=== PATIENT | female | born 1995 | race Caucasian/White ===

== ENCOUNTER → 2021-08-16 20:28 | Observation (INO) | END | disposition home or self-care (01) | LOC: 1NENULAB | PROVIDERS: ADMIT Advanced Practice Midwife; ATTEND Advanced Practice Midwife ==

== ENCOUNTER 2021-09-17 16:11 | Inpatient (IN) ==
[2021-09-17 15:04] LABS: Basophils % 0.3 %; Eosinophils # 0.1 K/mcL (0.0-0.6); Eosinophils % 0.5 %; Hematocrit 41.3 % (35.3-44.9); Hemoglobin 13.9 g/dL (11.5-15.4); Immature Granulocytes % 1.5 % (0-4); Lymphocytes # 2.7 K/mcL (0.6-4.6); Lymphocytes % 18.8 %; Mean Corpuscular HGB Conc 33.7 g/dL (31.6-35.5); Mean Corpuscular Hemoglobin 29.4 pg (28.0-33.3); Mean Corpuscular Volume 87.5 fL (83.0-100.0); Mean Platelet Volume 10.7 fL (9.4-12.4); Monocytes # 0.8 K/mcL (0.0-1.3); Monocytes % 5.8 %; Neutrophils # 10.5 K/mcL (1.6-8.9); Platelet Count 241 K/mcL (140-400); Red Blood Count 4.72 M/mcL (3.82-4.97); Red Cell Distribution Width 12.9 % (11.5-14.5); Segmented Neutrophils % 73.1 %; White Blood Count 14.4 K/mcL (4.3-11.1)
[~2021-09-17 16:11] MED LIST: *HR* Nalbuphine 10 MG/ML AMPUL IV PRN; Famotidine 20 MG/2 ML VIAL IVP PRN; Metoclopramide 10 MG/2 ML VIAL IVP PRN; Naloxone 0.4 MG/ML INJ IVP PRN; Ondansetron 4 MG/2 ML VIAL IVP PRN; Penicillin G Potassium 5,000,000 UNIT in 0.9 % Sodium Chloride Mini Bag 100 ML IVPB ONE
[2021-09-17 17:32] LABS: Amphetamine Screen,Urine Negative ng/mL (Cutoff=1000); Barbiturate Screen,Urine Negative ng/mL (Cutoff=200); Benzodiazepines Screen,Urine Negative ng/mL (Cutoff=200); Cannabinoid Screen,Urine Negative ng/mL (Cutoff = 50); Cocaine Screen,Urine Negative ng/mL (Cutoff= 300); Opiate Screen,Urine Negative ng/mL (Cutoff=300); Phencyclidine Screen,Urine Negative ng/mL (Cutoff=25)
[2021-09-17] MEDS ORDERED: Ropivacaine/PF 0.2% 20 ML VIAL EP ONE (17:40)
[2021-09-17] MEDS ORDERED: EPHEDrine 50 MG/ML VIAL IVP PRN (17:40)
[2021-09-17] MEDS ORDERED: *HR* FentaNYL (PF) 100 MCG/2 ML VIAL EP ONE (17:40)
[2021-09-17] MEDS: Ringers Solution, Lactated 1,000 ML IVC SCH (20:02)
[2021-09-17] MEDS: Penicillin G Potassium 2,500,000 UNIT/105 ML MLS IVPB SCH (20:03)
[2021-09-17] MEDS ORDERED: Acetaminophen 325 MG TABLET PO PRN (20:11)
[2021-09-17] MEDS ORDERED: Oxytocin 20 units/ LR 1000 mL 20 UNIT/1,000 ML BAG IVC SCH (21:30)
[2021-09-18] MEDS: Ringers Solution, Lactated 1,000 ML IVC SCH ×2 (00:05→02:56)
[2021-09-18] MEDS: Penicillin G Potassium 2,500,000 UNIT/105 ML MLS IVPB SCH ×2 (00:10→04:01)
[2021-09-18] MEDS: Epidural Premix (fent/bupiv) 110 ML EP SCH ×2 (00:13→02:53)
[2021-09-18] MEDS: Acetaminophen 325 MG TABLET PO PRN ×2 (08:28→20:38)
[2021-09-18] MEDS ORDERED: Ondansetron ODT 4 MG TAB.RAPDIS SL PRN (10:59)
[2021-09-18] MEDS ORDERED: Lanolin 7 G OINT...G. TP PRN (10:59)
[2021-09-18] MEDS ORDERED: Oxytocin 20 units/ LR 1000 mL 20 UNIT/1,000 ML BAG IVC SCH (11:00)
[2021-09-18] MEDS: Ibuprofen 600 MG TABLET PO SCH ×3 (14:50→23:13)
[2021-09-18] MEDS: Benzocaine/Menthol 56 GM AEROSOL SPRAY TP PRN (20:39)
[2021-09-19] MEDS: Ibuprofen 600 MG TABLET PO SCH ×3 (06:57→20:09)
[2021-09-19] MEDS: Acetaminophen 325 MG TABLET PO PRN ×2 (06:57→20:09)
[2021-09-19] MEDS: Prenatal Vit/FA 1 EACH TABLET PO SCH (09:21)
[2021-09-19] MEDS: Benzocaine/Menthol 56 GM AEROSOL SPRAY TP PRN (09:21)
[2021-09-20] MEDS: Acetaminophen 325 MG TABLET PO PRN (01:25)
[2021-09-20] MEDS: Ibuprofen 600 MG TABLET PO SCH ×2 (01:26→08:23)
[2021-09-20 06:52] VITALS: BP 122/78; PULSE 96; TEMP 97.9; O2SAT 96
[2021-09-20] MEDS: Prenatal Vit/FA 1 EACH TABLET PO SCH (08:23)
== END 2021-09-20 14:43 | disposition home or self-care (01) | DRG 807 ==
LOC: 1NENULAB → 1NENUOBS 09-18 07:45
PROVIDERS: ADMIT Advanced Practice Midwife; ATTEND Advanced Practice Midwife